=== PATIENT | female | born 1930 | race Caucasian/White ===

== ENCOUNTER 2018-07-28 11:35 | Emergency (ER) | payer BC ==
[2018-07-28 11:51] VITALS: BP 117/67
--- NOTE | 2018-07-28 12:47 | UC ---
Respiratory Complaint HPI - HPI Summary HPI Summary: 11 days of cough, nasal congestion, chest congestion and fatigue. Feels symptoms are getting worse with subjective fever and now some loose stools. Denies feeling short of breath. No wheeze. No chest pain. - History of Current Complaint Chief Complaint: UCGeneralIllness Stated Complaint: COUGH WEAKNESS Time Seen by Provider: 07/28/18 11:51 Hx Obtained From: Patient, Family/Videogame Tester - DAUGHTER Onset/Duration: Gradual Onset, Lasting Days, Still Present Timing: Constant Severity Initially: Moderate Severity Currently: Moderate Pain Intensity: 0 Pain Scale Used: 0-10 Numeric Character: Cough: Nonproductive Aggravating Factors: Recumbent Position Alleviating Factors: Upright Position Associated Signs And Symptoms: Positive: URI, Nasal Congestion. Negative: Dyspnea, Fever, Wheezing, Sinus Discomfort - Allergies/Home Medications Allergies/Adverse Reactions: Allergies Allergy/AdvReac Type Severity Reaction Status Date / Time No Known Allergies Allergy Verified 07/28/18 11:52 Home Medications: Home Medications Amlodipine Besylate [Norvasc] 5 mg PO DAILY 07/28/18 [History Confirmed 07/28/18 ] Carvedilol CR (NF) [Coreg CR (NF)] 20 mg PO DAILY 07/28/18 [History Confirmed ] Clopidogrel Bisulfate [Plavix] 75 mg PO DAILY WITH MEAL 07/28/18 [History Confirmed 07/28/18] Losartan Potassium [Cozaar] 50 mg PO DAILY 07/28/18 [History Confirmed 07/28/18] PMH/Surg Hx/FS Hx/Imm Hx Cardiovascular History: Cardiac Disease, Hypertension - Surgical History Surgical History: Yes Surgery Procedure, Year, and Place: left knee. possible stents in heart. cataract. hysterectomy. choly - Family History Known Family History: Positive: Hypertension - Social History Alcohol Use: None Substance Use Type: None Smoking Status (MU): Former Smoker When Did the Patient Quit Smoking/Using Tobacco: 40 years Household Exposure Type: Cigarettes Review of Systems All Other Systems Reviewed And Are Negative: Yes Constitutional: Positive: Fever, Chills, Fatigue ENT: Positive: Nasal Discharge Respiratory: Positive: Cough Cardiovascular: Positive: Negative Gastrointestinal: Positive: Negative Physical Exam Triage Information Reviewed: Yes Appearance: Well-Appearing, No Pain Distress, Well-Nourished Vital Signs: Initial Vital Signs Temp 97.8 F 07/28/18 11:45 Pulse 80 07/28/18 11:45 Resp 18 07/28/18 11:45 BP 117/67 07/28/18 11:45 Pulse Ox 99 07/28/18 11:45 Vital Signs Reviewed: Yes Eyes: Positive: Conjunctiva Clear ENT: Positive: Hearing grossly normal, Pharynx normal Neck: Positive: Supple, Nontender, No Lymphadenopathy Respiratory Exam: Normal Cardiovascular Exam: Normal Abdomen Description: Positive: Soft Musculoskeletal: Positive: No Edema Neurological: Positive: Alert Psychological: Negative: Age Appropriate Behavior Skin: Negative: Rashes UC Diagnostic Evaluation - Laboratory O2 Sat by Pulse Oximetry: 99 - Radiology Radiology Interpretation Completed By: Radiologist Summary of Radiographic Findings: CXR - HYPERINFLATION, CONSISTENT WITH COPD. NO ACTIVE CARDIOPULMONARY DISEASE. Respiratory Course/Dx - Differential Dx/Diagnosis Provider Diagnoses: ACUTE BRONCHITIS Discharge - Sign-Out/Discharge Documenting (check all that apply): Patient Departure All imaging exams completed and their final reports reviewed: Yes - Discharge Plan Condition: Stable Disposition: HOME Prescriptions: Azithromyxin RUT (NF) [Z-Rut (Zithromax) 250 mg tabs #6] 2 tab PO .TODAY, THEN 1 DAILY #6 tab Patient Education Materials: Acute Bronchitis (ED) Referrals: Wood Sanchez MD [Primary Care Provider] - If Needed Additional Instructions: YOUR SYMPTOMS MAY BE VIRALLY MEDIATED BUT GIVEN THE LENGTH OF TIME YOU HAVE BEEN ILL WE WILL COVER YOU WITH ANTIBIOTICS. IF YOU START THE MEDICINE BE SURE TO TAKE IT FOR THE FULL COURSE. REST, HYDRATE, OTC MEDS NEEDED. SEEK FOLLOW- UP WITH YOUR PCP IF YOU ARE NOT IMPROVING OVER THE NEXT 1-2 WEEKS. GO TO ED WITHOUT FAIL IF YOU DEVELOP FEVER, SHORTNESS OF BREATH, CHEST PAIN, NAUSEA, SWEATS, DIZZINESS OR ANY OTHER CONCERNING SYMPTOMS. - Billing Disposition and Condition Condition: STABLE Disposition: Home
== END 2018-07-28 13:14 | disposition home or self-care (01) ==
LOC: UCEAST 11:35
DX: J20.9 Acute bronchitis, unspecified (principal); I10 Essential (primary) hypertension; Z79.02 Long term (current) use of antithrombotics/antiplatelets; Z79.899 Other long term (current) drug therapy; Z87.891 Personal history of nicotine dependence
CPT/HCPCS: 71046; 99212; G0463